=== PATIENT | female | born 1985 | race Caucasian/White ===

== ENCOUNTER → 2016-07-16 | Outpatient (CLI) | payer BC | END | disposition home or self-care (01) | DX: E28.2 Polycystic ovarian syndrome (principal) ==

== ENCOUNTER → 2016-07-24 | Outpatient (CLI) | payer BC | END | disposition home or self-care (01) | LOC: PTH.S 12:03 | DX: Z32.00 Encounter for pregnancy test, result unknown (principal); O09.899 Supervision of other high risk pregnancies, unspecified trimester; E34.9 Endocrine disorder, unspecified ==